=== PATIENT | female | born 1980 | race Caucasian/White ===

== ENCOUNTER 2016-08-04 10:55 | Inpatient (IN) | payer OTHER ==
[~2016-08-04] VITALS: Ht 165.1 cm; Wt 94.5 kg
[~2016-08-04 10:55] MED LIST: PRENATAL1 TA1 PO
[2016-09-04] VITALS (37 sets, daily range): BP systolic 100–135; BP diastolic 56–87; PULSE 55–90; TEMP 97.4–98.4
[2016-09-04] MEDS ORDERED: COLACE 100100 MG/CAP PO (07:12)
[2016-09-04 07:52] LABS: BASO % 0.4 % (0.0-2.0); EOS # 0.1 (0.0-0.7); EOS % 0.6 % (0-4.0); GRAN % 70.8 % (42.2-75.2); HEMOGLOBIN 12.8 g/dl (12.5-16.0); LYMPH # 1.9 (1.2-3.4); LYMPH % 22.9 % (20.0-51.0); MEAN CELL VOLUME 86 fl (80.0-100.0); MEAN CORPUSCULAR HEMOGLOBIN 30 pg (27.0-31.0); MEAN CORPUSCULAR HGB CONC 35 g/dl (33.0-37.0); MEAN PLATELET VOLUME 11.4 fl (7.4-10.4); MONO # 0.4 (0.1-0.6); MONO % 4.8 % (1.7-9.3); PLATELET COUNT 164 K/mm3 (130-400); RED BLOOD COUNT 4.24 M/mm3 (4.10-5.30); REDCELL DISTRIBUTION WIDTH-CV 12.9 % (11.5-14.5); WHITE BLOOD COUNT 8.5 K/mm3 (4.8-10.8)
[2016-09-04 07:53] LABS: HEMATOCRIT 36.3 % (37.0-47.0)
[2016-09-05 00:40] VITALS: BP 103/67; PULSE 71; TEMP 97.9
[2016-09-05 07:50] VITALS: BP 116/51; PULSE 68; TEMP 97.6
[2016-09-05 21:00] VITALS: BP 118/67; PULSE 69; TEMP 98.2
[2016-09-06 07:30] VITALS: BP 126/71; PULSE 68; TEMP 98
[2016-09-06] MEDS ORDERED: PERCOCET 325 MG1 TA2 PO (11:12)
[2016-09-06] MEDS ORDERED: IBU800 M1 PO (11:12)
== END 2016-09-06 12:50 | disposition home or self-care (01) | DRG 775 ==
LOC: LDR 09-04 06:47 → OB 09-04 18:00 → EDSTATUS 09-09 06:45 → LDRO 09-09 10:54
PROVIDERS: Obstetrics & Gynecology
PROC: 10E0XZZ Delivery of Products of Conception, External Approach (ICD-10-PCS; principal; 2016-09-04)
PROC: 0HQ9XZZ Repair Perineum Skin, External Approach (ICD-10-PCS; 2016-09-04)
PROC: 3E033VJ Introduction of Other Hormone into Peripheral Vein, Percutaneous Approach (ICD-10-PCS; 2016-09-04)
DX: O99.824 Streptococcus B carrier state complicating childbirth (principal); O69.81X0 Labor and delivery complicated by cord around neck, without compression, not applicable or unspecified; O70.0 First degree perineal laceration during delivery; Z3A.39 39 weeks gestation of pregnancy; Z37.0 Single live birth
CPT/HCPCS: J2540; J2590; J7120

== ENCOUNTER → 2022-12-06 | Outpatient (CLI) | payer OTHER ==
[~2022-12-06] MED LIST changes: +COLACE 100100 MG/CAP PO; +IBU800 M1 PO; +PERCOCET 325 MG1 TA2 PO
== END ==
LOC: MC.RAD 08:53
DX: Z12.31 Encounter for screening mammogram for malignant neoplasm of breast (principal); N64.89 Other specified disorders of breast